=== PATIENT | male | born 1950 | race African-American/Black ===

== ENCOUNTER 2017-02-11 08:35 | Inpatient (IN) | payer MEDICARE, MEDICAID ==
[~2017-02-11 08:35] MED LIST: ADULT LOW DOSE81 M1 PO; ALEVE220 MG; ALLOPURINOL300 MG; AMOXICILLIN500 M1 PO; ASPIR 8181 M1 PO; ASPIRIN325 M3 PO; ATENOLOL25 MG; BOOST PLUS237 ML PO; CALCIUM600 M1 PO; CARDIZEM CD120 MG; CELEXA10 M1 PO; FERROUS SULFAT325 MG PO; GLUCOPHAGE1000 M1 PO; GLUCOPHAGE1000 MG; LASIX40 MG; LISINOPRIL40 MG; MOBIC15 M2 PO; NOVOLOG MI100 UNIT/1 SC; OMEPRAZOLE20 M4 PO; PANTOPRAZOLE SO40 M3 PO; PLAQUENIL200 M1 PO; PREDNISONE10 M1 PO; PREDNISONE5 M1 PO; ROXICODONE5 M2 PO; SODIUM BICARBO650 M1 PO; ULTRAM50 M1 PO; VITAMIN B-12250 MC2 PO; VITAMIN C500 M3 PO; VITAMIN D250000 UNI1 PO; ZYLOPRIM300 M1 PO
[2017-02-12 05:56] LABS: HCT-HEMATOCRIT 34.1 % (36.0-53.5); HGB-HEMOGLOBIN 11.7 gm/dl (13.5-17.0); IMMATURE GRANULOCYTES ABSOLUTE 0.04 tho/cmm (0-0.03); IMMATURE GRANULOCYTES PERCENT 0.4 % (0-0.3); LYMPH % 9.3 % (20-45); LYMPH ABSOLUTE COUNT 0.9 tho/cmm (0.8-4.5); MCH (MEAN CORPUSCULAR HGB) 34.6 pg (28.0-32.0); MCHC MEAN CORPUSCULAR HGB CONC 34.3 % (32.0-36.0); MCV (MEAN CELL VOLUME) 100.9 fl (82.0-96.0); MEAN PLATELET VOLUME 8.8 cmc (9.4-12.4); MONO % 10.4 % (0-12); NEUTROPHILS % 79.9 % (40-80); PLATELET COUNT 160 tho/cmm (150-450); RED BLOOD COUNT 3.38 mil/cmm (4.40-5.70); RED CELL DISTRIBUTION WIDTH 14.7 % (12.4-16.4)
[2017-02-13 06:16] LABS: ANION GAP 13 mmol/L (0-20); BLOOD UREA NITROGEN 33 mg/dl (6-24); CALCIUM 8.6 mg/dl (8.5-10.5); CARBON DIOXIDE-VENOUS 26 mmol/L (22-32); CHLORIDE 104 mmol/l (96-110); CREATININE 1.84 mg/dl (0.60-1.30); GLUCOSE 105 mg/dL (70-110); POTASSIUM 4.1 mmol/L (3.7-5.1); SODIUM 139 mmol/L (135-145); eGFR VALUE FOR BLACK 44 mL/Min
[2017-02-13] MEDS ORDERED: TYLENOL325 M2 PO (10:40)
[2017-02-13] MEDS ORDERED: OXYCODONE HCL5 M1 PO (10:44)
== END 2017-02-13 11:05 | DRG 470 ==
LOC: SHSB 08:35 → ORE 10:54 → PACU 12:54 → 5EA 14:20
PROVIDERS: Family Medicine; ADMIT Orthopaedic Surgery Foot and Ankle Surgery
PROC: 0SRC0J9 Replacement of Right Knee Joint with Synthetic Substitute, Cemented, Open Approach (ICD-10-PCS; principal; 2017-02-11)
DX: M17.11 Unilateral primary osteoarthritis, right knee (principal); E11.22 Type 2 diabetes mellitus with diabetic chronic kidney disease; I27.2 Other secondary pulmonary hypertension; M06.9 Rheumatoid arthritis, unspecified; D62 Acute posthemorrhagic anemia; Z79.52 Long term (current) use of systemic steroids; K21.9 Gastro-esophageal reflux disease without esophagitis; G47.33 Obstructive sleep apnea (adult) (pediatric); N18.3 Chronic kidney disease, stage 3 (moderate); H91.90 Unspecified hearing loss, unspecified ear; K40.90 Unilateral inguinal hernia, without obstruction or gangrene, not specified as recurrent; M81.0 Age-related osteoporosis without current pathological fracture; Z79.84 Long term (current) use of oral hypoglycemic drugs; Z79.82 Long term (current) use of aspirin; E53.8 Deficiency of other specified B group vitamins; Q90.9 Down syndrome, unspecified; I12.9 Hypertensive chronic kidney disease with stage 1 through stage 4 chronic kidney disease, or unspecified chronic kidney disease; D63.1 Anemia in chronic kidney disease; M06.4 Inflammatory polyarthropathy; Z96.641 Presence of right artificial hip joint
CPT/HCPCS: C1713; C1776; J0171; J0690; J1720; J1815; J1885; J2270; J2795; J3010; J7512